=== PATIENT | female | born 1965 | race Two or more races ===

== ENCOUNTER 2021-04-19 21:43 | Emergency (ER) | payer OTHER ==
[~2021-04-19] VITALS: Ht 162.6 cm; Wt 65.8 kg
[2021-04-19] MEDS ORDERED: SERTRALINE 75 MG (22:49)
== END 2021-04-20 11:48 | disposition home or self-care (01) ==
LOC: ER 21:43
DX: N23 Unspecified renal colic (principal); Z20.822 Contact with and (suspected) exposure to COVID-19

== ENCOUNTER 2021-11-05 08:45 | Outpatient (CLI) | payer OTHER ==
[~2021-11-05 08:45] MED LIST: SERTRALINE 75 MG
== END 2021-11-05 09:10 | disposition home or self-care (01) ==
LOC: MAMO-SONO 08:45
PROVIDERS: ATTEND Obstetrics & Gynecology
DX: Z12.31 Encounter for screening mammogram for malignant neoplasm of breast (principal); N60.11 Diffuse cystic mastopathy of right breast; N60.12 Diffuse cystic mastopathy of left breast; R10.2 Pelvic and perineal pain

== ENCOUNTER 2021-11-05 10:01 | Outpatient (CLI) | payer OTHER | END 2021-11-05 10:08 | disposition home or self-care (01) | LOC: NUCLEAR 10:01 | PROVIDERS: ATTEND Obstetrics & Gynecology | DX: M81.0 Age-related osteoporosis without current pathological fracture (principal) ==